=== PATIENT | female | born 1985 | race Two or more races ===

== ENCOUNTER 2019-02-05 12:32 | Emergency (ER) | payer OTHER ==
[~2019-02-05] VITALS: Ht 154.9 cm; Wt 59.0 kg
[~2019-02-05 12:32] MED LIST: BACTRIM 400-801 TAB; BENADRYL25 MG PO; CALDYPHEN CLEA; IBUPROFEN800 MG PO; NON ADHEREN1 BANDAGE TP; ULTRAM50 MG PO
== END 2019-02-05 18:53 | disposition home or self-care (01) ==
LOC: ER 12:32
DX: S93.492A Sprain of other ligament of left ankle, initial encounter (principal); X50.1XXA Overexertion from prolonged static or awkward postures, initial encounter; Y93.89 Activity, other specified; Y92.89 Other specified places as the place of occurrence of the external cause; Y99.8 Other external cause status